=== PATIENT | male | born 1970 | race Caucasian/White ===

== ENCOUNTER 2016-08-25 07:57 | Emergency (ER) ==
[2016-08-25 08:06] VITALS: BP 172/99; TEMP 96.6; BMI 40.1
[2016-08-25] MEDS ORDERED: TORADOL IM STA (08:14)
--- NOTE | 2016-08-25 08:18 | ED.PDOC ---
General ED Provider: Dr. FATEMEH MANCILLA Chief Complaint: Extremity Pain/Injury Stated Complaint: he lifted the power chair 2 days ago,ever since he is hurting in the right shoulder when he raises. Time Seen by Physician: 08:15 Mode of Arrival: Walk-In Information Source: Patient Primary Care Provider: DAREN BECKHAM Nursing and Triage Documentation Reviewed and Agree: Yes Musculoskeletal Complaint Exam - Shoulder Pain Complaint/Exam Mechanism of Injury: Reports: Trauma Symptoms Are: Still present Timing: Constant Initial Severity: Moderate Current Severity: Moderate Location: Reports: Discrete Character: Reports: Aching, Throbbing Alleviating: Reports: None Aggravating: Reports: Movement, Lifting Associated Signs and Symptoms: Denies: Swelling, Redness, Bruising, Fever, Weakness, Numbness, Tingling DVT Risk Factors: Reports: None Septic Arthritis Risk Factors: Reports: None Related Surgical History: Reports: None Limited Range of Motion: Present: Abduction, Adduction, Flexion, Extension Differential Diagnoses: Sprain Review of Systems - Review Of Systems Constitutional: Reports: No symptoms Eyes: Reports: No symptoms Ears, Nose, Mouth, Throat: Reports: No symptoms Respiratory: Reports: No symptoms Cardiac: Reports: No symptoms GI: Reports: No symptoms : Reports: No symptoms Musculoskeletal: Reports: Joint pain Skin: Reports: No symptoms Neurological: Reports: No symptoms Endocrine: Reports: No symptoms Hematologic/Lymphatic: Reports: No symptoms All Other Systems: Reviewed and Negative Past Medical History - Past Medical History Previously Healthy: Yes Endocrine: Reports: DM 2 Cardiovascular: Reports: Hypertension Respiratory: Reports: None Hematological: Reports: None Gastrointestinal: Reports: None Genitourinary: Reports: None Neuro/Psych: Reports: Seizure, Anxiety, Depression, Bipolar Disorder Musculoskeletal: Reports: Arthritis, Joint Pain Cancer: Reports: None Other Pertinent Past Medical History: SLEEP APNEA - Surgical History General Surgical History: Reports: Unknown (ESOPHAGEAL SURGERY) - Family History Family History: Reports: Unknown - Social History Smoking Status: Dips snuff Hx Substance Use: No Alcohol Screening: Occasionally Physical Exam - Physical Exam Appearance: Well-appearing, No pain distress, Well-nourished Eyes: EDIS, EOMI, Conjunctiva clear ENT: Ears normal, Nose normal, Oropharynx normal Respiratory: Airway patent, Breath sounds clear, Breath sounds equal, Respirations nonlabored Cardiovascular: RRR, Pulses normal, No rub, No murmur GI/: Soft, Nontender, No masses, Bowel sounds normal, No Organomegaly Musculoskeletal: No edema, No calf tenderness, Limited ROM, Limited strength Skin: Warm, Dry, Normal color Neurological: Sensation intact, Motor intact, Reflexes intact, Cranial nerves intact, Alert, Oriented Psychiatric: Affect appropriate, Mood appropriate Interpretation - Radiology Interpretation Radiology Interpretation By: ED Physician Radiology Results: Negative Critical Care Note - Critical Care Note Total Time (mins): 0 Course - Course Orders, Labs, Meds: Orders Category Date Time Status Ketorolac Tromethamine [Toradol] MEDS 08/25/16 08:14 Discontinued 60 mg IM ONCE STA SHOULDER, RIGHT MIN 2V Stat RADS 08/25/16 08:14 Taken Medications Discontinued Medications Generic Name Dose Route Start Last Admin Trade Name Freq PRN Reason Stop Dose Admin Ketorolac Tromethamine 60 mg 08/25/16 08:14 08/25/16 08:20 Toradol IM 08/25/16 08:15 60 mg ONCE STA Administration Vital Signs: Temp Pulse Resp BP Pulse Ox 08/25/16 07:58 96.6 F L 88 18 172/99 H 96 Departure - Departure Time of Disposition: 08:41 Disposition: HOME SELF-CARE Discharge Problem: Shoulder sprain Qualifiers: Encounter type: initial encounter Shoulder sprain type: unspecified sprain Laterality: right Qualifier Code: (S43.401A) Unspecified sprain of right shoulder joint, initial encounter Instructions: Shoulder Sprain (ED) Condition: Stable Pt referred to PMD for follow-up: Yes Additional Instructions: rest heat or cold pack Prescriptions: Cyclobenzaprine HCl [Flexeril] 5 mg PO BID #14 tablet Hydrocodone/Acetaminophen [[place] 5-325 Tablet] 1 tab PO TID PRN #12 tablet PRN Reason: PAIN Allergies/Adverse Reactions: Allergies No Known Drug Allergies Adverse Reaction (Verified 05/18/16 13:11) Home Medications: Ambulatory Orders Citalopram Hydrobromide [Celexa] 40 mg PO BEDTIME 11/09/13 Gabapentin 600 mg PO TID 11/09/13 Insulin Glargine,Hum.rec.anlog [Lantus] 85 units SQ BEDTIME 11/09/13 Lisinopril/Hydrochlorothiazide [Zestoretic 20-12.5 mg Tablet] 1 each PO BID 03/15 Metformin HCl 1,000 mg PO BID 11/09/13 Metoprolol Tartrate 150 mg PO DAILY 05/05/15 Ranitidine HCl [Zantac] 150 mg PO BIDAC 10/21/15 Hydrocodone/Acetaminophen [[place] 5-325 Tablet] 1 tab PO Q6HR PRN #20 tablet Cyclobenzaprine HCl [Flexeril] 5 mg PO BID #14 tablet 08/25/16 Hydrocodone/Acetaminophen [[place] 5-325 Tablet] 1 tab PO TID PRN #12 tablet 08/25 Disposition Discussed With: Patient
--- NOTE | 2016-08-25 08:40 | DI ---
Examination: Three radiographic images of the right shoulder. Comparison: 03/31/2016. Reason for study: Injury and pain. FINDINGS: No acute fracture or dislocation. The joint spaces well maintained. The humeral head ar ticulates with the bony glenoid. There is arthritic change seen within the acromioclavicular joint space. Impression: No acute fracture in the right shoulder. 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
== END 2016-08-25 08:48 | disposition home or self-care (01) ==
LOC: ED 07:57
DX: S43.401A Unspecified sprain of right shoulder joint, initial encounter (principal); X50.0XXA Overexertion from strenuous movement or load, initial encounter; E11.9 Type 2 diabetes mellitus without complications
CPT/HCPCS: 36415; 80053; 80061; 82043; 83036; 96372; 99282

== ENCOUNTER 2016-08-25 08:47 | Outpatient (CLI) ==
[2016-08-25 08:06] VITALS: BMI 40.1
[2016-08-25 09:27] LABS: ALBUMIN 3.6 g/dL (3.4-5.0); ALBUMIN/GLOBULIN RATIO 0.95; ANION GAP 16.3; BILIRUBIN,TOTAL 1.21 mg/dL (0.00-1.20); BUN/CREATININE RATIO 16.47; CALCIUM 9.6 mg/dL (8.2-10.2); CHOL/HDL RATIO 2.1 (4.5-6.4); CREATININE 0.85 mg/dL (0.60-1.10); POTASSIUM 4.3 mmol/L (3.5-5.1); TOTAL PROTEIN 7.4 g/dL (6.4-8.2)
== END 2016-08-25 08:48 | disposition home or self-care (01) ==
LOC: LAB 08:47
PROVIDERS: ATTEND Family Medicine
DX: E11.9 Type 2 diabetes mellitus without complications (principal)
CPT/HCPCS: 36415; 80053; 80061; 82043; 83036

== ENCOUNTER 2017-02-02 17:03 | Emergency (ER) ==
[2017-02-02 17:07] VITALS: BP 135/86; TEMP 97.6; BMI 39.9
[2017-02-02 17:38] LABS: BASOPHILS # (AUTO) 0.1 K/uL (0-0.2); BASOPHILS % (AUTO) 0.9 % (0.0-3.0); EOSINOPHILS # (AUTO) 0.1 K/ul (0.0-0.7); EOSINOPHILS % (AUTO) 1.6 % (0.0-7.0); HEMATOCRIT 38.5 % (42.0-52.0); HEMOGLOBIN 13.9 g/dl (14.0-18.0); IMMATURE GRANULOCYTE % (AUTO) 0.2 % (0.0-5.0); LYMPHOCYTES # (AUTO) 2.7 K/uL (0.60-3.4); LYMPHOCYTES % (AUTO) 47.4 (10.0-50.0); MEAN CORPUSCULAR HEMOGLOBIN 33.2 pg (27.0-31.0); MEAN CORPUSCULAR HGB CONC 36.1 (31.8-35.4); MEAN CORPUSCULAR VOLUME 91.9 fl (80.0-94.0); MONOCYTES # (AUTO) 0.6 K/uL (0.4-2.0); MONOCYTES % (AUTO) 10.4 (0-10); NEUTROPHILS # (AUTO) 2.3 K/ul (2.0-6.9); NEUTROPHILS % (AUTO) 39.5; PLATELET COUNT 153 10^3/uL (140-440); RED BLOOD COUNT 4.19 10^6/ul (4.70-6.10); WHITE BLOOD COUNT 5.78 K/ul (4.2-10.2)
[2017-02-02 17:58] LABS: COCAIN SCREEN,URINE NEGATIVE (NEGATIVE)
[2017-02-02 18:02] LABS: ALANINE AMINOTRANSFERASE 50 U/L (12-78); ALBUMIN 2.8 g/dL (3.4-5.0); ALBUMIN/GLOBULIN RATIO 0.85; ALKALINE PHOSPHATASE 166 U/L (50-136); ANION GAP 17.1; ASPARTATE AMINO TRANSFERASE 58 U/L (15-37); BILIRUBIN,TOTAL 0.83 mg/dL (0.00-1.20); BLOOD UREA NITROGEN 7 mg/dL (7-18); BUN/CREATININE RATIO 8.75; CALCIUM 8.9 mg/dL (8.2-10.2); CARBON DIOXIDE 24 mmol/L (21-32); CHLORIDE 103 mmol/L (98-107); CREATINE KINASE 65 U/L; GLUCOSE 333 mg/dL (70-100); POTASSIUM 4.1 mmol/L (3.5-5.1); SODIUM 140 mmol/L (136-145); TOTAL PROTEIN 6.1 g/dL (6.4-8.2)
--- NOTE | 2017-02-02 18:24 | ED.PDOC ---
General ED Provider: Dr. JACKIE KESSLER Chief Complaint: Shoulder Pain/Injury Stated Complaint: bilateral shoulder pain Time Seen by Physician: 17:00 (seen with staff at all time) Mode of Arrival: Walk-In Information Source: Patient Exam Limitations: No limitations Primary Care Provider: CARMELLA BECKHAM Nursing and Triage Documentation Reviewed and Agree: Yes Musculoskeletal Complaint Exam - Shoulder Pain Complaint/Exam Mechanism of Injury: Reports: No known trauma Onset/Duration: chronic Symptoms Are: Still present Timing: Constant Initial Severity: Mild Current Severity: Mild Location: Reports: Discrete Character: Reports: Aching, Spasmodic, Stiffness Alleviating: Reports: Rest Aggravating: Reports: Movement, Lifting, Flexion, Extension, Internal rotation, External rotation, Abduction Associated Signs and Symptoms: Denies: Swelling, Redness, Bruising, Fever, Weakness, Numbness, Tingling Related History: Reports: Similar episode Non-Orthopedic Risk Factors: Reports: None DVT Risk Factors: Reports: None Septic Arthritis Risk Factors: Reports: None Related Surgical History: Reports: None Limited Range of Motion: Present: Abduction, Adduction, Flexion, Extension, Internal rotation, External rotation, Rotator cuff muscles, Rotator cuff insertion Differential Diagnoses: Rotator Cuff Injury, Sprain, Strain Review of Systems - Review Of Systems Constitutional: Reports: No symptoms Eyes: Reports: No symptoms Ears, Nose, Mouth, Throat: Reports: No symptoms Respiratory: Reports: No symptoms Cardiac: Reports: No symptoms GI: Reports: No symptoms : Reports: No symptoms Musculoskeletal: Reports: Joint pain Skin: Reports: No symptoms Neurological: Reports: No symptoms Endocrine: Reports: No symptoms Hematologic/Lymphatic: Reports: No symptoms All Other Systems: Reviewed and Negative Past Medical History - Past Medical History Previously Healthy: Yes Endocrine: Reports: DM 2 Cardiovascular: Reports: Hypertension Respiratory: Reports: None Hematological: Reports: None Gastrointestinal: Reports: None Genitourinary: Reports: None Neuro/Psych: Reports: Seizure, Anxiety, Depression, Bipolar Disorder Musculoskeletal: Reports: Arthritis, Joint Pain Cancer: Reports: None Other Pertinent Past Medical History: SLEEP APNEA - Surgical History General Surgical History: Reports: Unknown (ESOPHAGEAL SURGERY) - Family History Family History: Reports: Unknown - Social History Smoking Status: Dips snuff Hx Substance Use: No Alcohol Screening: Occasionally - Immunizations Tetanus Shot up to Date: No Physical Exam - Physical Exam Appearance: Well-appearing, No pain distress, Well-nourished Eyes: EDIS, EOMI, Conjunctiva clear ENT: Ears normal, Nose normal, Oropharynx normal Respiratory: Airway patent, Breath sounds clear, Breath sounds equal, Respirations nonlabored Cardiovascular: RRR, Pulses normal, No rub, No murmur GI/: Soft, Nontender, No masses, Bowel sounds normal, No Organomegaly Musculoskeletal: Normal strength, ROM intact, No edema, No calf tenderness Skin: Warm, Dry, Normal color Neurological: Sensation intact, Motor intact, Reflexes intact, Cranial nerves intact, Alert, Oriented Psychiatric: Affect appropriate, Mood appropriate Interpretation - Radiology Interpretation Radiology Interpretation By: ED Physician Radiology Results: Negative Exam Interpreted: CXR - EKG Interpretation Rate: Normal Rhythm: Sinus Ectopy: None [place]: NL ST Segment: Normal Critical Care Note - Critical Care Note Total Time (mins): 0 Course - Course Hematology/Chemistry: 02/02/17 17:30 02/02/17 17:30 Orders, Labs, Meds: Lab Review 02/02/17 02/02/17 17:30 17:40 WBC 5.78 RBC 4.19 L Hgb 13.9 L Hct 38.5 L MCV 91.9 MCH 33.2 H MCHC 36.1 H RDW Coeff of Quique 12.5 Plt Count 153 Immature Gran % (Auto) 0.2 Neut % (Auto) 39.5 Lymph % (Auto) 47.4 [place] % (Auto) 10.4 H Eos % (Auto) 1.6 Baso % (Auto) 0.9 Immature Gran # (Auto) 0.0 Neut # 2.3 Lymph # 2.7 [place] # 0.6 Eos # 0.1 Baso # 0.1 Sodium 140 Potassium 4.1 Chloride 103 Carbon Dioxide 24 Anion Gap 17.1 BUN 7 Creatinine 0.80 Estimated GFR (MDRD) 103.00 BUN/Creatinine Ratio 8.75 Glucose 333 H Calcium 8.9 Total Bilirubin 0.83 AST 58 H ALT 50 Alkaline Phosphatase 166 H Total Creatine Kinase 65 Troponin I < 0.0100 Total Protein 6.1 L Albumin 2.8 L Globulin 3.3 Albumin/Globulin Ratio 0.85 Urine Opiates Screen Negative Ur Oxycodone Screen Negative Urine Methadone Screen Negative Ur Propoxyphene Screen Negative Ur Barbiturates Screen Negative U Tricyclic Antidepress Negative Ur Phencyclidine Scrn Negative Ur Amphetamine Screen Negative U Methamphetamines Scrn Negative U Benzodiazepines Scrn Negative Urine Cocaine Screen Negative U Cannabinoids Screen Negative Orders Category Date Time Status EKG-(ED ONLY) Stat CARDIO 02/02/17 17:18 Completed CBC W/ AUTO DIFF Stat LAB 02/02/17 17:30 Completed COMPREHENSIVE METABOLIC PANEL Stat LAB 02/02/17 17:30 Completed CREATINE KINASE Stat LAB 02/02/17 17:30 Completed TROPONIN I Stat LAB 02/02/17 17:30 Completed URINE DRUG SCREEN (RAPID FOR ED) [DRUG SCREEN, URINE, LAB 02/02/17 17:40 Completed RAPID] Stat CHEST, 2 VIEWS PA & LAT Stat RADS 02/02/17 17:18 Taken Vital Signs: Temp Pulse Resp BP Pulse Ox 02/02/17 17:04 97.6 F 110 H 16 135/86 98 Departure - Departure Time of Disposition: 18:23 Disposition: HOME SELF-CARE Discharge Problem: Shoulder pain Uncontrolled diabetes mellitus Qualifiers: Diabetes mellitus type: type 2 Diabetes mellitus complication status: with unspecified complications Instructions: Arthralgia (ED), Shoulder Pain (ED) Condition: Good Pt referred to PMD for follow-up: Yes Additional Instructions: Please call your Family Physician as soon as possible to schedule a follow-up appointment. Allergies/Adverse Reactions: Allergies No Known Drug Allergies Adverse Reaction (Verified 05/18/16 13:11) Home Medications: Ambulatory Orders Citalopram Hydrobromide [Celexa] 40 mg PO BEDTIME 11/09/13 Gabapentin 600 mg PO TID 11/09/13 Insulin Glargine,Hum.rec.anlog [Lantus] 85 units SQ BEDTIME 11/09/13 Lisinopril/Hydrochlorothiazide [Zestoretic 20-12.5 mg Tablet] 1 each PO BID 03/15 Metformin HCl 1,000 mg PO BID 11/09/13 Metoprolol Tartrate 150 mg PO DAILY 05/05/15 Ranitidine HCl [Zantac] 150 mg PO BIDAC 10/21/15 Cyclobenzaprine HCl [Flexeril] 5 mg PO BID #14 tablet 08/25/16
--- NOTE | 2017-02-02 20:26 | DI ---
EXAM: Chest two views CLINICAL INDICATION: Cough. COMPARISON: 05/18/2016. FINDINGS: PA and lateral views of the thorax are provided. The pulmonary parenchyma is clear and there is no pleural abnormality. The cardiomediastinal silhou ette and visualized bony structures are unremarkable. IMPRESSION: Negative chest x-ray.
== END 2017-02-02 18:33 | disposition home or self-care (01) ==
LOC: ED 17:03
DX: M25.512 Pain in left shoulder (principal); M25.511 Pain in right shoulder; E11.9 Type 2 diabetes mellitus without complications; F17.220 Nicotine dependence, chewing tobacco, uncomplicated
CPT/HCPCS: 36415; 80053; 80306; 82550; 84484; 85025; 93005; 93010; 99283

== ENCOUNTER 2017-04-09 15:54 | Emergency (ER) ==
[2017-04-09 15:57] VITALS: BP 146/90; TEMP 96.4; BMI 32.5
--- NOTE | 2017-04-09 16:37 | DI ---
EXAM: Cervical spine radiographs. HISTORY: Initial presentation for neck injury due to a fall. COMPARISON: 04/20/2016. TECHNIQUE: 6 views. FINDINGS: The normal curvature and alignment are maintained. Vertebral body and intervertebral disc heights are normal. Endplate osteophyte formation noted in the lower cervical spine. Multilevel un covertebral hypertrophy and facet arthropathy noted. No fracture or subluxation is seen. Prevertebr al soft tissues are unremarkable. Since the prior study, there has been no significant interval segundo topete IMPRESSION: No acute abnormality of the cervical spine.
--- NOTE | 2017-04-09 16:38 | DI ---
EXAM: Radiographs, left scapula HISTORY: Initial presentation for left scapular trauma. COMPARISON: None available. TECHNIQUE: Two views. FINDINGS: Bone mineralization is normal. There is no fracture or dislocation. The joint spaces are maintained. No focal soft tissue abnormality is seen. There are old left-sided rib fractures, altho ugh the underlying left lung is clear without pleural effusion or pneumothorax. IMPRESSION: No fracture or dislocation.
--- NOTE | 2017-04-09 16:39 | DI ---
EXAM: Three views of the left elbow. History: Left elbow pain and trauma. Findings: No acute fracture or dislocation. No abnormal calcifications or radiopaque foreign bodies . Mild posterior soft tissue swelling. No joint effusion. Impression: No acute osseous abnormality.
--- NOTE | 2017-04-09 16:40 | DI ---
EXAM: Radiographs, thoracic spine HISTORY: Back pain following a fall. Initial presentation. COMPARISON: Chest radiograph 02/02/2017. TECHNIQUE: Three views. FINDINGS: Curvature and alignment are normal. Vertebral body heights are maintained. There is mild disc space narrowing with moderate multilevel endplate osteophyte formation noted. No fracture or s ubluxation identified. Soft tissues are unremarkable. IMPRESSION: No acute abnormality of the thoracic spine.
--- NOTE | 2017-04-09 17:00 | ED.PDOC ---
General ED Provider: Dr. JACKIE KESSLER Chief Complaint: Fall Stated Complaint: fall elbow pain, neck and upper back pain Time Seen by Physician: 16:00 Mode of Arrival: Walk-In Information Source: Patient Exam Limitations: No limitations Primary Care Provider: CARMELLA BECKHAM Nursing and Triage Documentation Reviewed and Agree: Yes Trauma/Injury Complaint Exam - Trauma Complaint/Exam Location of Pain or Injury: Reports: Neck, LUE (elbow), Back (thoracic) Mechanism of Injury: Reports: Fall Onset/Duration: today f Symptoms Are: Still present Timing of Treatment: Immediate Initial Severity: Mild Current Severity: Mild Character: Reports: Aching Aggravating: Reports: None Alleviating: Reports: Rest Associated Signs and Symptoms: Denies: LOC, Confusion, Memory loss, Lethargy, Vomiting, Bleeding, Bruising, Swelling, Extremity disuse, Painful respiration, Hoarseness, Dysphagia, Hemoptysis, Significant blood loss Nexus Low Risk Criteria: No post-midline CS tender, No evidence of intoxicat., No Altered LOC (neck has been noted to have a dull pain), No focal neuro deficit, No distracting injuries Glascow Coma Scale (see protocol): 15 Differential Diagnoses: Sprain, Strain Review of Systems - Review Of Systems Constitutional: Reports: No symptoms Eyes: Reports: No symptoms Ears, Nose, Mouth, Throat: Reports: No symptoms Respiratory: Reports: No symptoms Cardiac: Reports: No symptoms GI: Reports: No symptoms : Reports: No symptoms Musculoskeletal: Reports: Back pain (thoracic), Joint pain (elbow), Muscle pain , Neck pain Skin: Reports: No symptoms Neurological: Reports: No symptoms Endocrine: Reports: No symptoms Hematologic/Lymphatic: Reports: No symptoms All Other Systems: Reviewed and Negative Past Medical History - Past Medical History Previously Healthy: Yes Endocrine: Reports: DM 2 Cardiovascular: Reports: Hypertension Respiratory: Reports: None Hematological: Reports: None Gastrointestinal: Reports: None Genitourinary: Reports: None Neuro/Psych: Reports: Seizure, Anxiety, Depression, Bipolar Disorder Musculoskeletal: Reports: Arthritis, Joint Pain Cancer: Reports: None Other Pertinent Past Medical History: SLEEP APNEA - Surgical History General Surgical History: Reports: Unknown (ESOPHAGEAL SURGERY) - Family History Family History: Reports: Unknown - Social History Smoking Status: Dips snuff Hx Substance Use: No Alcohol Screening: Occasionally Physical Exam - Physical Exam Appearance: Well-appearing, No pain distress, Well-nourished Eyes: EDIS, EOMI, Conjunctiva clear ENT: Ears normal, Nose normal, Oropharynx normal Respiratory: Airway patent, Breath sounds clear, Breath sounds equal, Respirations nonlabored Cardiovascular: RRR, Pulses normal, No rub, No murmur GI/: Soft, Nontender, No masses, Bowel sounds normal, No Organomegaly Musculoskeletal: Limited ROM (elbow) Skin: Warm, Dry, Normal color Neurological: Sensation intact, Motor intact, Reflexes intact, Cranial nerves intact, Alert, Oriented Psychiatric: Affect appropriate, Mood appropriate Interpretation - Radiology Interpretation Radiology Interpretation By: Radiologist Radiology Results: No acute changes Critical Care Note - Critical Care Note Total Time (mins): 0 Course - Course Orders, Labs, Meds: Orders Category Date Time Status CERVICAL SPINE, MIN 4 VIEWS Stat RADS 04/09/17 16:03 Ordered ELBOW, LEFT MIN 3 VIEWS Stat RADS 04/09/17 16:00 Ordered SCAPULA, LEFT Stat RADS 04/09/17 16:00 Ordered THORACIC SPINE, 3 VIEWS Stat RADS 04/09/17 16:02 Ordered Vital Signs: Temp Pulse Resp BP Pulse Ox 04/09/17 15:54 96.4 F L 112 H 20 146/90 H 95 Departure - Departure Time of Disposition: 17:00 Disposition: HOME SELF-CARE Discharge Problem: Neck pain, Sprain of elbow, left Back pain Qualifiers: Back pain location: thoracic back pain Chronicity: acute Back pain laterality: left Qualified Code(s): M54.6 - Pain in thoracic spine Instructions: Cervical Sprain (ED), Elbow Sprain (ED) Condition: Good Pt referred to PMD for follow-up: Yes Allergies/Adverse Reactions: Allergies No Known Drug Allergies Adverse Reaction (Verified 04/09/17 15:58) Home Medications: Ambulatory Orders Citalopram Hydrobromide [Celexa] 40 mg PO BEDTIME 11/09/13 Gabapentin 600 mg PO TID 11/09/13 Insulin Glargine,Hum.rec.anlog [Lantus] 85 units SQ BEDTIME 11/09/13 Lisinopril/Hydrochlorothiazide [Zestoretic 20-12.5 mg Tablet] 1 each PO BID 03/15 Metformin HCl 1,000 mg PO BID 11/09/13 Metoprolol Tartrate 150 mg PO DAILY 05/05/15 Ranitidine HCl [Zantac] 150 mg PO BIDAC 10/21/15 Cyclobenzaprine HCl [Flexeril] 5 mg PO BID #14 tablet 08/25/16
== END 2017-04-09 17:25 | disposition home or self-care (01) ==
LOC: ED 15:54
DX: M54.2 Cervicalgia (principal); M54.6 Pain in thoracic spine; S53.402A Unspecified sprain of left elbow, initial encounter; W19.XXXA Unspecified fall, initial encounter
CPT/HCPCS: 99283

== ENCOUNTER 2017-04-20 07:57 | Emergency (ER) ==
[2017-04-20 08:04] VITALS: BP 130/78; TEMP 97; BMI 38.9
--- NOTE | 2017-04-20 08:22 | ED.PDOC ---
General ED Provider: Dr. ISAIAH MCKAY Chief Complaint: Back Pain Stated Complaint: pateint states he was seen two weeks ago here for neck pain after a fall. He did not follow up with PCP. States he has been taking Motrin but has not helped. Time Seen by Physician: 08:19 Mode of Arrival: Walk-In Information Source: Patient Primary Care Provider: CARMELLA BECKHAM Nursing and Triage Documentation Reviewed and Agree: Yes Review of Systems - Review Of Systems Constitutional: Reports: No symptoms Eyes: Reports: No symptoms Ears, Nose, Mouth, Throat: Reports: No symptoms Respiratory: Reports: No symptoms Cardiac: Reports: No symptoms GI: Reports: No symptoms : Reports: No symptoms Musculoskeletal: Reports: Back pain, Joint pain (shoulder pain ), Neck pain Skin: Reports: No symptoms Neurological: Reports: No symptoms Endocrine: Reports: No symptoms Hematologic/Lymphatic: Reports: No symptoms All Other Systems: Reviewed and Negative Past Medical History - Past Medical History Previously Healthy: Yes Endocrine: Reports: DM 2 Cardiovascular: Reports: Hypertension Respiratory: Reports: None Hematological: Reports: None Gastrointestinal: Reports: None Genitourinary: Reports: None Neuro/Psych: Reports: Seizure, Anxiety, Depression, Bipolar Disorder Musculoskeletal: Reports: Arthritis, Back Pain, Joint Pain Cancer: Reports: None Other Pertinent Past Medical History: SLEEP APNEA - Surgical History General Surgical History: Reports: Unknown (ESOPHAGEAL SURGERY) - Family History Family History: Reports: Unknown - Social History Smoking Status: Dips snuff Hx Substance Use: No Alcohol Screening: Occasionally Physical Exam - Physical Exam Appearance: Ill-appearing, Obese Ill-appearing: Mild Pain Distress: Moderate Neck: Nonsupple (Tenderness to palpation) Critical Care Note - Critical Care Note Total Time (mins): 0 Comments: Reviewed Recent X ray of neck Course - Course Vital Signs: Temp Pulse Resp BP Pulse Ox 04/20/17 07:58 97 F L 94 H 20 130/78 95 Departure - Departure Time of Disposition: 08:19 Disposition: HOME SELF-CARE Discharge Problem: Neck pain, musculoskeletal, Backache Shoulder pain, bilateral Qualifiers: Chronicity: chronic Qualified Code(s): M25.511 - Pain in right shoulder Instructions: Shoulder Pain (ED), Neck Pain (ED) Condition: Fair Pt referred to PMD for follow-up: Yes Additional Instructions: Follow up with PCP in 3 days so that you can be referred to pain management, have special imaging and be referred to occupational therapy for shoulder pain Take Medications as prescribed. Prescriptions: Cyclobenzaprine HCl [Flexeril] 5 mg PO TID PRN #14 tablet PRN Reason: Spasms Ibuprofen [Motrin] 600 mg PO Q6H PRN #20 tablet PRN Reason: Analgesia Allergies/Adverse Reactions: Allergies No Known Drug Allergies Adverse Reaction (Verified 04/20/17 08:06) Home Medications: Ambulatory Orders Citalopram Hydrobromide [Celexa] 40 mg PO BEDTIME 11/09/13 Gabapentin 600 mg PO TID 11/09/13 Insulin Glargine,Hum.rec.anlog [Lantus] 85 units SQ BEDTIME 11/09/13 Lisinopril/Hydrochlorothiazide [Zestoretic 20-12.5 mg Tablet] 1 each PO BID 03/15 Metformin HCl 1,000 mg PO BID 11/09/13 Metoprolol Tartrate 150 mg PO DAILY 05/05/15 Ranitidine HCl [Zantac] 150 mg PO BIDAC 10/21/15 Cyclobenzaprine HCl [Flexeril] 5 mg PO TID PRN #14 tablet 04/20/17 Ibuprofen [Motrin] 600 mg PO Q6H PRN #20 tablet 04/20/17 Disposition Discussed With: Patient
== END 2017-04-20 08:41 | disposition home or self-care (01) ==
LOC: ED 07:57
DX: M54.2 Cervicalgia (principal); M54.9 Dorsalgia, unspecified; M25.512 Pain in left shoulder; M25.511 Pain in right shoulder; G89.29 Other chronic pain; W19.XXXD Unspecified fall, subsequent encounter
CPT/HCPCS: 99282

== ENCOUNTER 2017-04-23 16:12 | Outpatient (CLI) | END 2017-04-23 16:13 | disposition short-term general hospital (02) | LOC: AMBL 16:12 | PROVIDERS: ATTEND Internal Medicine | DX: R41.82 Altered mental status, unspecified (principal); E11.9 Type 2 diabetes mellitus without complications ==